=== PATIENT | male | born 1940 | race Caucasian/White ===

== ENCOUNTER → 2019-09-27 | Outpatient (CLI) | payer MEDICARE ==
[2019-09-27 13:32] VITALS: BP 125/81; PULSE 64; TEMP 98.5; BMI 34.1
--- NOTE | 2019-09-27 13:52 | P.HPBAR ---
Bariatric H&P - History & Physicial H&P Date: 09/27/19 History & Physicial: Visit/CC: lap band follow up Patient initial contact: Initial weight: 163.293 kg Initial weight in pounds: 360.00 Height: 6 ft 2 in Initial BMI: 46.2 Last weight: Current weight: 120.656 kg Current weight in pounds: 266.00 Current BMI: 34.1 [place] body weight (based on NIH guidelines): 86.183 kg Excess body weight loss: 55.2% The patient is a 78 year-old M who presents for Bariatric Assessment. Patient presents today for lab band follow. He's had complaints of some vague epigastric abdominal pain and some diarrhea. He's had fecal incontinence. Patient denies any nausea or vomiting or any symptoms of dysphagia. He states he has some pain when eating. It is worse with greasy foods. Past Medical History Past Medical History: Hyperlipidemia, Hypertension Additional Past Medical History / Comment(s): Chronic tiredness, gas pain and bloating when eat History of Any Multi-Drug Resistant Organisms: None Reported Past Surgical History: Bariatric Surgery Additional Past Surgical History / Comment(s): lapband 10years Past Anesthesia/Blood Transfusion Reactions: No Reported Reaction Additional Psychological History / Comment(s): chronic tiredness Smoking Status: Never smoker Past Alcohol Use History: None Reported Past Drug Use History: None Reported Surgical - Exam Vital Signs Temp Pulse BP 98.5 F 64 125/81 09/27/19 13:30 09/27/19 13:30 09/27/19 13:30 - General well developed, well nourished, no distress - Eyes PERRL - ENT normal pinna - Neck no masses - Respiratory normal expansion - Cardiovascular Rhythm: regular - Abdomen Mild right upper quadrant tenderness Abdomen: soft Bariatric Assessment & Plan Plan: Abdominal pain, indigestion. Patient will have a ultrasounds gallbladder performed also a HIDA scan of her biliary dysfunction. Patient will have a colonoscopy also scheduled for screening colonoscopy. His last colonoscopy was approximately 8-10 years ago. Bariatric Checklist Checklist: Plan: Checklist: EGD: 1. Hiatal hernia: 2. H. Pylori: HgbA1c: Vitamin D: Smoking: Former smoker Primary care physician referral: Psychiatry clearance: Cardiology clearance: Sleep study: Diet journal: VTE risk score: VTE risk level: Rehab needs at discharge:
== END | disposition home or self-care (01) ==
LOC: BARWHC3 12:40
PROVIDERS: ATTEND Surgery
DX: Z48.815 Encounter for surgical aftercare following surgery on the digestive system (principal); Z98.84 Bariatric surgery status; R10.9 Unspecified abdominal pain; K30 Functional dyspepsia
CPT/HCPCS: 99211